=== PATIENT | male | born 1965 | race African-American/Black ===

== ENCOUNTER 2019-06-01 09:57 | Inpatient (IN) | payer OTHER ==
[2019-06-01 10:22] VITALS: BMI 25.9
--- NOTE | 2019-06-01 10:58 | HP ---
CIWA Score Nausea/Vomitin-No Nausea/No Vomiting Muscle Tremors: None Anxiety: 1-Mildly Anxious Agitation: 0-Normal Activity Paroxysmal Sweats: No Perspiration Orientation: 1-Uncertain about Date Tacttile Disturbances: 0-None Auditory Disturbances: 0-None Visual Disturbances: 0-None Headache: 0-None Present CIWA-Ar Total Score: 2 - Admission Criteria OASAS Guidelines: Admission for Medically Managed Detox: Requires at least one of the followin. CIWA greater than 12 2. Seizures within the past 24 hours 3. Delirium tremens within the past 24 hours 4. Hallucinations within the past 24 hours 5. Acute intervention needed for co occurring medical disorder 6. Acute intervention needed for co occurring psychiatric disorder 7. Severe withdrawal that cannot be handled at a lower level of care (continued vomiting, continued diarrhea, abnormal vital signs) requiring intravenous medication and/or fluids 8. Admission ROS BHS - HPI Allergies/Adverse Reactions: Allergies Allergy/AdvReac Type Severity Reaction Status Date / Time No Known Allergies Allergy Verified 06/01/19 10:17 History of Present Illness: pt here report was @ [facility] this morning ,states he went there due to his alcohol use, per pt was told there were no beds and was referred to this facility . etoh- 5-6 cans beer/day , first age of use 13 , denies significant sobriety , denies seizures , blackouts , reports occasional tremors if not drinking , most ly feeling anxious , claims latest use was yesterday states he did not take BP meds since > 1 week ago , per pharmacy latest rx Exam Limitations: No Limitations - Ebola screening Have you traveled outside of the country in the last 21 days: No Have you had contact with anyone from an Ebola affected area: No Do you have a fever: No - Review of Systems Constitutional: No Symptoms Reported EENT: reports: Other (glasses) Respiratory: reports: No Symptoms reported Cardiac: reports: No Symptoms Reported GI: reports: Other (reports heartburn , better w/ OTC Rolaids) : reports: No Symptoms Reported Musculoskeletal: reports: See HPI, Muscle Weakness Integumentary: reports: No Symptoms Reported Neuro: reports: Pre-Existing Deficit Endocrine: reports: No Symptoms Reported Psychiatric: reports: Orientated x3, Anxious Patient History - Smoking Cessation Smoking history: Unknown if ever smoked - Substances abused Alcohol Substance route: Oral Frequency: Daily Amount used: 3 cans of 24oz beer Age of first use: 14 Date of last use: 05/31/19 Admission Physical Exam BHS - Vital Signs Vital Signs: Vital Signs - 24 hr 06/01/19 10:12 Temperature 96.9 F L Pulse Rate 80 Respiratory 18 Rate Blood Pressure 152/99 - Physical General Appearance: Yes: No Apparent Distress HEENTM: Yes: EOMI, Hearing grossly Normal, Normocephalic, Normal Voice Respiratory: Yes: Chest Non-Tender, Lungs Clear, Normal Breath Sounds, No Respiratory Distress, No Accessory Muscle Use Neck: Yes: No masses,lesions,Nodules, Trachea in good position Cardiology: Yes: Regular Rhythm, Regular Rate, S1, S2 Abdominal: Yes: Non Tender, Soft Musculoskeletal: Yes: Other (CVA 2 years ago w3/ left-sided weakness uses cane) Neurological: Yes: Alert, Normal Mood/Affect Integumentary: Yes: Dry, Warm Breathalyzer - Breathalyzer Breathalyzer: 0.078 Urine Drug Screen - Test Device Lot number: [id number] Expiration date: 01/06/21 - Control Is test valid?: Yes - Results Drug screen NEGATIVE: Yes Inpatient Rehab Admission - Rehab Decision to Admit Inpatient rehab admission?: Yes - Initial Determination Are CD services needed?: Yes Free of communicable disease: Yes Not in need of hospitalization: Yes - Rehab Admission Criteria Previous failed treatment: No Poor recovery environment: No Comorbidities: Yes Lacks judgement: Yes Patient is meeting Inpatient Rehab admission criteria:: Yes
[2019-06-01] MEDS ORDERED: MENTHOL/PHENOL 1 EACH UD MM PRN (11:13)
[2019-06-01] MEDS ORDERED: MAG HYDROX/AL HYDROX/SIMETH 30 ML UNIT-DOSE CUP PO PRN (11:13)
[2019-06-01] MEDS ORDERED: LOPERAMIDE HCL 2 MG CAPSULE PO PRN (11:13)
[2019-06-01] MEDS ORDERED: P-EPHED 60MG/TRIPROLIDI 2.5MG TABLET PO PRN (11:13)
[2019-06-01] MEDS ORDERED: hydrOXYzine PAMOATE 25 MG CAPSULE (FP) PO PRN (11:13)
[2019-06-01] MEDS ORDERED: MAGNESIUM CITRATE 300 ML BOTTLE PO PRN (11:13)
[2019-06-01] MEDS ORDERED: guaiFENesin 200 MG/10 ML 10 ML UNIT-DOSE CUPS PO PRN (11:13)
[2019-06-01] MEDS ORDERED: MAGNESIUM HYDROX 2400MG/30ML ORAL SUSPENSION 30 ML CUP PO PRN (11:13)
[2019-06-01] MEDS ORDERED: NIFEDIPINE 120 MG PO SCH (11:15)
[2019-06-01] MEDS ORDERED: TUBERCULIN PPD 5 TU/0.1ML VIAL ID ONE (14:58)
[2019-06-01] MEDS: CHOLECALCIFEROL (VIT D3) 1,000 UNIT (25 MCG) TABLET PO SCH (15:08)
[2019-06-01] MEDS: NIFEdipine E.R 60 MG TABLET (UD) PO SCH (15:08)
[2019-06-01] MEDS ORDERED: ONDANSETRON *ODT* 4 MG TABLET SL PRN (15:24)
--- NOTE | 2019-06-01 15:37 | PN ---
[facility] Progress Note Note: New pt admitted to the unit from [facility] for alcohol use disorder few less than 30 minutes ago, c/o anxiety,slight tremors and nausea. denies hx seizures. alert o x 3. Nad but appears fatigued. Vital Signs - 24 hr 06/01/19 06/01/19 10:12 16:02 Temperature 96.9 F L 98.8 F Pulse Rate 80 96 H Respiratory 18 16 Rate Blood Pressure 152/99 143/82 A/P Nausea Anxiety Zofran ODT8 mg po Q8H prn for n/v Increase Vistaril 50 mg po q4h prn for agitations/anxiety
[2019-06-01] MEDS: hydrOXYzine PAMOATE 25 MG CAPSULE (FP) PO PRN (15:42)
[2019-06-01 15:47] LABS: HEMATOCRIT 44.9 % (35.4-49); HEMOGLOBIN 14.9 GM/dL (11.7-16.9); MCH 32.3 pg (25.7-33.7); MCHC 33.3 g/dl (32.0-35.9); MEAN CELL VOLUME 97.1 fl (80-96); MEAN PLT VOLUME 8.3 fl (7.5-11.1); PLATELET COUNT 290 K/MM3 (134-434); RBC 4.62 M/mm3 (4.00-5.60); RDW 14.5 % (11.9-15.9)
[2019-06-01 16:10] LABS: ALBUMIN 4.4 g/dl (3.4-5.0); BILIRUBIN,TOTAL 0.5 mg/dL (0.2-1); BLOOD UREA NITROGEN 5.6 mg/dL (7-18); CALCIUM 8.9 mg/dL (8.5-10.1); POTASSIUM 4.1 mmol/L (3.5-5.1)
[2019-06-01] MEDS: MELATONIN 5 MG TABLETS PO PRN (21:30)
[2019-06-01] MEDS: THIAMINE HCL 100 MG TABLET (FP) PO SCH (21:30)
[2019-06-02] MEDS: NIFEdipine E.R 60 MG TABLET (UD) PO SCH (10:29)
[2019-06-02] MEDS: CHOLECALCIFEROL (VIT D3) 1,000 UNIT (25 MCG) TABLET PO SCH (10:29)
[2019-06-02] MEDS: PRENATAL VITAMINS W/ FOLIC ACID TABLET (FP) PO SCH (10:29)
[2019-06-02] MEDS: ACETAMINOPHEN 325 MG TABLET (FP) PO PRN (10:30)
[2019-06-02] MEDS: hydrOXYzine PAMOATE 25 MG CAPSULE (FP) PO PRN (10:30)
[2019-06-02 12:17] LABS: URINE APPEARANCE CLEAR; URINE BILIRUBIN NEGATIVE (NEGATIVE); URINE COLOR YELLOW; URINE GLUCOSE (UA) NEGATIVE (NEGATIVE); URINE KETONE NEGATIVE (NEGATIVE); URINE LEUK ESTERASE NEGATIVE (NEGATIVE); URINE NITRITE NEGATIVE (NEGATIVE); URINE PROTEIN NEGATIVE (NEGATIVE); URINE UROBILINOGEN 0.2 mg/dL (0.2-1.0)
[2019-06-02] MEDS: THIAMINE HCL 100 MG TABLET (FP) PO SCH (21:53)
[2019-06-02] MEDS: MELATONIN 5 MG TABLETS PO PRN (21:53)
[2019-06-03] MEDS: PRENATAL VITAMINS W/ FOLIC ACID TABLET (FP) PO SCH (09:52)
[2019-06-03] MEDS: CHOLECALCIFEROL (VIT D3) 1,000 UNIT (25 MCG) TABLET PO SCH (09:52)
[2019-06-03] MEDS: NIFEdipine E.R 60 MG TABLET (UD) PO SCH (09:52)
[2019-06-03] MEDS: MELATONIN 5 MG TABLETS PO PRN (21:28)
[2019-06-03] MEDS: THIAMINE HCL 100 MG TABLET (FP) PO SCH (21:28)
[2019-06-04] MEDS: PRENATAL VITAMINS W/ FOLIC ACID TABLET (FP) PO SCH (10:29)
[2019-06-04] MEDS: CHOLECALCIFEROL (VIT D3) 1,000 UNIT (25 MCG) TABLET PO SCH (10:29)
[2019-06-04] MEDS: NIFEdipine E.R 60 MG TABLET (UD) PO SCH (10:29)
[2019-06-04] MEDS: THIAMINE HCL 100 MG TABLET (FP) PO SCH (21:28)
[2019-06-04] MEDS: MELATONIN 5 MG TABLETS PO PRN (21:28)
[2019-06-05] MEDS: hydrOXYzine PAMOATE 25 MG CAPSULE (FP) PO PRN (01:53)
[2019-06-05] MEDS: NIFEdipine E.R 60 MG TABLET (UD) PO SCH (11:19)
[2019-06-05] MEDS: CHOLECALCIFEROL (VIT D3) 1,000 UNIT (25 MCG) TABLET PO SCH (11:22)
[2019-06-05] MEDS: PRENATAL VITAMINS W/ FOLIC ACID TABLET (FP) PO SCH (11:22)
[2019-06-05] MEDS: THIAMINE HCL 100 MG TABLET (FP) PO SCH (21:35)
[2019-06-05] MEDS: MELATONIN 5 MG TABLETS PO PRN (21:36)
[2019-06-06] MEDS: PRENATAL VITAMINS W/ FOLIC ACID TABLET (FP) PO SCH (10:26)
[2019-06-06] MEDS: NIFEdipine E.R 60 MG TABLET (UD) PO SCH (10:26)
[2019-06-06] MEDS: CHOLECALCIFEROL (VIT D3) 1,000 UNIT (25 MCG) TABLET PO SCH (10:27)
[2019-06-06] MEDS: MELATONIN 5 MG TABLETS PO PRN (21:23)
[2019-06-06] MEDS: THIAMINE HCL 100 MG TABLET (FP) PO SCH (21:23)
[2019-06-07] MEDS: ACETAMINOPHEN 325 MG TABLET (FP) PO PRN (05:14)
[2019-06-07] MEDS: CHOLECALCIFEROL (VIT D3) 1,000 UNIT (25 MCG) TABLET PO SCH (11:11)
[2019-06-07] MEDS: PRENATAL VITAMINS W/ FOLIC ACID TABLET (FP) PO SCH (11:11)
[2019-06-07] MEDS: NIFEdipine E.R 60 MG TABLET (UD) PO SCH (11:12)
[2019-06-07] MEDS: MELATONIN 5 MG TABLETS PO PRN (21:06)
[2019-06-07] MEDS: THIAMINE HCL 100 MG TABLET (FP) PO SCH (21:06)
[2019-06-08] MEDS: ACETAMINOPHEN 325 MG TABLET (FP) PO PRN (02:00)
[2019-06-08] MEDS: PRENATAL VITAMINS W/ FOLIC ACID TABLET (FP) PO SCH (10:24)
[2019-06-08] MEDS: NIFEdipine E.R 60 MG TABLET (UD) PO SCH (10:24)
[2019-06-08] MEDS: CHOLECALCIFEROL (VIT D3) 1,000 UNIT (25 MCG) TABLET PO SCH (10:24)
--- NOTE | 2019-06-08 13:13 | PN ---
[facility] Progress Note Note: Pt reports hx of internal hemorrhoids for many years and experienced blood on defecation this morning. Denies nausea, vomiting,diarrhea abdominal pain or constipation.Alert o x 3, oob ambulating with steady gait. Appetite good. Vital Signs 06/08/19 07:55 Temperature 98.0 F Pulse Rate 94 H Respiratory 18 Rate Blood Pressure 116/62 Laboratory Tests 06/01/19 06/01/19 06/01/19 11:40 11:40 11:40 WBC 5.0 RBC 4.62 Hgb 14.9 Hct 44.9 MCV 97.1 H MCH 32.3 MCHC 33.3 RDW 14.5 Plt Count 290 MPV 8.3 Sodium 144 Potassium 4.1 Chloride 108 H Carbon Dioxide 26 Anion Gap 10 BUN 5.6 L Creatinine 1.0 Est GFR (CKD-EPI)AfAm 99.15 Est GFR (CKD-EPI)NonAf 85.55 Random Glucose 80 Calcium 8.9 Total Bilirubin 0.5 AST 83 H ALT 99 H Alkaline Phosphatase 54 Total Protein 8.0 Albumin 4.4 Urine Color Urine Appearance Urine pH Ur Specific [place] Urine Protein Urine Glucose (UA) Urine Ketones Urine Blood Urine Nitrite Urine Bilirubin Urine Urobilinogen Ur Leukocyte Esterase RPR Titer Nonreactive 06/02/19 09:45 WBC RBC Hgb Hct MCV MCH MCHC RDW Plt Count MPV Sodium Potassium Chloride Carbon Dioxide Anion Gap BUN Creatinine Est GFR (CKD-EPI)AfAm Est GFR (CKD-EPI)NonAf Random Glucose Calcium Total Bilirubin AST ALT Alkaline Phosphatase Total Protein Albumin Urine Color Yellow Urine Appearance Clear Urine pH 8.0 Ur Specific [place] 1.012 Urine Protein Negative Urine Glucose (UA) Negative Urine Ketones Negative Urine Blood Negative Urine Nitrite Negative Urine Bilirubin Negative Urine Urobilinogen 0.2 Ur Leukocyte Esterase Negative RPR Titer A/P Hx of Hemorrhoids blood in stool Start Anusol HC cream 2.5 % as directed Tucks wipes, use after each BM. D/w pt to report to staff if sx continues. Pt is Agreeable to poc.
[2019-06-08] MEDS ORDERED: WITCH HAZEL 50% (TUCKS) 40 PAD/JAR PAD TP PRN (13:14)
[2019-06-08] MEDS: HYDROCORTISONE 2.5% TOPICAL CREAM 30 GM TUBE TP SCH ×2 (16:07→21:16)
[2019-06-08] MEDS: THIAMINE HCL 100 MG TABLET (FP) PO SCH (21:14)
[2019-06-08] MEDS: MELATONIN 5 MG TABLETS PO PRN (21:15)
[2019-06-08] MEDS: IBUPROFEN 400 MG TABLET (FP) PO PRN (23:29)
[2019-06-09] MEDS: NIFEdipine E.R 60 MG TABLET (UD) PO SCH (10:07)
[2019-06-09] MEDS: CHOLECALCIFEROL (VIT D3) 1,000 UNIT (25 MCG) TABLET PO SCH (10:07)
[2019-06-09] MEDS: HYDROCORTISONE 2.5% TOPICAL CREAM 30 GM TUBE TP SCH ×2 (10:07→21:11)
[2019-06-09] MEDS: PRENATAL VITAMINS W/ FOLIC ACID TABLET (FP) PO SCH (10:07)
[2019-06-09] MEDS: IBUPROFEN 400 MG TABLET (FP) PO PRN (15:02)
[2019-06-09] MEDS: MELATONIN 5 MG TABLETS PO PRN (21:10)
[2019-06-09] MEDS: THIAMINE HCL 100 MG TABLET (FP) PO SCH (21:10)
[2019-06-10] MEDS: IBUPROFEN 400 MG TABLET (FP) PO PRN ×3 (04:52→21:07)
[2019-06-10] MEDS: NIFEdipine E.R 60 MG TABLET (UD) PO SCH (09:54)
[2019-06-10] MEDS: CHOLECALCIFEROL (VIT D3) 1,000 UNIT (25 MCG) TABLET PO SCH (09:54)
[2019-06-10] MEDS: PRENATAL VITAMINS W/ FOLIC ACID TABLET (FP) PO SCH (09:54)
[2019-06-10] MEDS: HYDROCORTISONE 2.5% TOPICAL CREAM 30 GM TUBE TP SCH ×2 (09:55→21:07)
[2019-06-10] MEDS ORDERED: PNEUMOC 13-VAL CONJ-DIP CRM/PF 0.5 ML DISP.SYRIN IM ONE (12:00)
[2019-06-10] MEDS ORDERED: PNEUMOCOCCAL 23 VACCINE 0.5 ML VIAL IM ONE (12:00)
[2019-06-10] MEDS: THIAMINE HCL 100 MG TABLET (FP) PO SCH (21:06)
[2019-06-10] MEDS: MELATONIN 5 MG TABLETS PO PRN (21:07)
[2019-06-11] MEDS: IBUPROFEN 400 MG TABLET (FP) PO PRN ×2 (03:56→17:42)
[2019-06-11] MEDS: CHOLECALCIFEROL (VIT D3) 1,000 UNIT (25 MCG) TABLET PO SCH (09:25)
[2019-06-11] MEDS: NIFEdipine E.R 60 MG TABLET (UD) PO SCH (09:25)
[2019-06-11] MEDS: HYDROCORTISONE 2.5% TOPICAL CREAM 30 GM TUBE TP SCH ×2 (09:25→21:14)
[2019-06-11] MEDS: PRENATAL VITAMINS W/ FOLIC ACID TABLET (FP) PO SCH (09:25)
[2019-06-11] MEDS: THIAMINE HCL 100 MG TABLET (FP) PO SCH (21:14)
[2019-06-11] MEDS: MELATONIN 5 MG TABLETS PO PRN (21:14)
[2019-06-11] MEDS: ACETAMINOPHEN 325 MG TABLET (FP) PO PRN (21:15)
[2019-06-12] MEDS: HYDROCORTISONE 2.5% TOPICAL CREAM 30 GM TUBE TP SCH ×2 (10:32→21:10)
[2019-06-12] MEDS: NIFEdipine E.R 60 MG TABLET (UD) PO SCH (10:32)
[2019-06-12] MEDS: CHOLECALCIFEROL (VIT D3) 1,000 UNIT (25 MCG) TABLET PO SCH (10:32)
[2019-06-12] MEDS: PRENATAL VITAMINS W/ FOLIC ACID TABLET (FP) PO SCH (10:32)
[2019-06-12] MEDS: THIAMINE HCL 100 MG TABLET (FP) PO SCH (21:10)
[2019-06-12] MEDS: MELATONIN 5 MG TABLETS PO PRN (21:10)
[2019-06-12] MEDS: IBUPROFEN 400 MG TABLET (FP) PO PRN (21:10)
[2019-06-13] MEDS: PRENATAL VITAMINS W/ FOLIC ACID TABLET (FP) PO SCH (10:20)
[2019-06-13] MEDS: NIFEdipine E.R 60 MG TABLET (UD) PO SCH (10:20)
[2019-06-13] MEDS: CHOLECALCIFEROL (VIT D3) 1,000 UNIT (25 MCG) TABLET PO SCH (10:20)
[2019-06-13] MEDS: HYDROCORTISONE 2.5% TOPICAL CREAM 30 GM TUBE TP SCH ×2 (10:21→21:23)
[2019-06-13] MEDS ORDERED: LIDOCAINE VISCOUS 2% ORAL/TOP 20 ML UNIT-DOSE CUP MM PRN (13:08)
[2019-06-13] MEDS: IBUPROFEN 400 MG TABLET (FP) PO PRN (16:33)
[2019-06-13] MEDS: THIAMINE HCL 100 MG TABLET (FP) PO SCH (21:23)
[2019-06-13] MEDS: MELATONIN 5 MG TABLETS PO PRN (21:23)
[2019-06-14] MEDS: IBUPROFEN 400 MG TABLET (FP) PO PRN ×2 (06:37→21:28)
[2019-06-14 07:17] VITALS: TEMP 98
[2019-06-14] MEDS: NIFEdipine E.R 60 MG TABLET (UD) PO SCH (10:21)
[2019-06-14] MEDS: PRENATAL VITAMINS W/ FOLIC ACID TABLET (FP) PO SCH (10:21)
[2019-06-14] MEDS: HYDROCORTISONE 2.5% TOPICAL CREAM 30 GM TUBE TP SCH ×2 (10:21→21:28)
[2019-06-14] MEDS: CHOLECALCIFEROL (VIT D3) 1,000 UNIT (25 MCG) TABLET PO SCH (10:21)
[2019-06-14 13:36] VITALS: BP 113/73; PULSE 95
[2019-06-14] MEDS: MELATONIN 5 MG TABLETS PO PRN (21:27)
[2019-06-14] MEDS: THIAMINE HCL 100 MG TABLET (FP) PO SCH (21:27)
--- NOTE | 2019-06-15 08:31 | DS ---
[facility] Rehab Discharge Summary - [facility] Rehab Discharge Summary Admission Date: 06/01/19 Discharge Date: 06/15/19 - History Present History: Alcohol dependence Additional Comments: Pt is a 53 y/o male with a hx of alcohol use disorder admitted to rehab and discharged today after completion. Pt has been referred to [facility] . Pt reports he has primary care provider Dr. Yamilex Dejesus at [facility] and had missed appointment for MRI and will call tomorrow to reschedule the appointment. Pertinent Past History: HTN S/P CVA left side in July 2017(no gross residual deficit) - Discharge Physical Exam Vital Signs: Vital Signs Temperature 98.0 F 06/14/19 07:16 Pulse Rate 95 H 06/14/19 10:00 Respiratory Rate 18 06/15/19 07:24 Blood Pressure 113/73 06/14/19 10:00 O2 Sat by Pulse Oximetry (%) Alert o x 3; denies s/h/i nad oob ambulating with steady gait cardiac:s1 s2,rrr lungs:cta,jayna. abdomen:soft,+bs,nt,nd extremities/skin:no edema,full ROM,skin intact. Pertinent Admission Physical Exam Findings: Laboratory Tests 06/01/19 06/01/19 06/01/19 11:40 11:40 11:40 WBC 5.0 RBC 4.62 Hgb 14.9 Hct 44.9 MCV 97.1 H MCH 32.3 MCHC 33.3 RDW 14.5 Plt Count 290 MPV 8.3 Sodium 144 Potassium 4.1 Chloride 108 H Carbon Dioxide 26 Anion Gap 10 BUN 5.6 L Creatinine 1.0 Est GFR (CKD-EPI)AfAm 99.15 Est GFR (CKD-EPI)NonAf 85.55 Random Glucose 80 Calcium 8.9 Total Bilirubin 0.5 AST 83 H ALT 99 H Alkaline Phosphatase 54 Total Protein 8.0 Albumin 4.4 Urine Color Urine Appearance Urine pH Ur Specific [place] Urine Protein Urine Glucose (UA) Urine Ketones Urine Blood Urine Nitrite Urine Bilirubin Urine Urobilinogen Ur Leukocyte Esterase RPR Titer Nonreactive 06/02/19 09:45 WBC RBC Hgb Hct MCV MCH MCHC RDW Plt Count MPV Sodium Potassium Chloride Carbon Dioxide Anion Gap BUN Creatinine Est GFR (CKD-EPI)AfAm Est GFR (CKD-EPI)NonAf Random Glucose Calcium Total Bilirubin AST ALT Alkaline Phosphatase Total Protein Albumin Urine Color Yellow Urine Appearance Clear Urine pH 8.0 Ur Specific [place] 1.012 Urine Protein Negative Urine Glucose (UA) Negative Urine Ketones Negative Urine Blood Negative Urine Nitrite Negative Urine Bilirubin Negative Urine Urobilinogen 0.2 Ur Leukocyte Esterase Negative RPR Titer Hx CVA(no gross residual deficit) - Treatment Discharge Condition: Discharge condition good - Medication Discharge Medications: Ambulatory Orders Nifedipine [Procardia Xl] 120 mg PO DAILY 30 Days tab.er.24 06/15/19 - Medication-Assisted Treatment (MAT) Medication-Assisted Treatment (MAT): No - Discharge Instructions Diet, activity, other medical instructions: Diet:PRATIK Activity: oob ad keli Other medical instructions:Follow up with your primary care provider, Dr. Yamilex Dejesus at [facility] within 1 week after discharge(Pt states he will go to the clinic tomorrow 06/16/19 to make the appointment) Follow up with CD aftercare referral at [facility] as scheduled. - Diagnosis (1) Alcohol dependence Current Visit: Yes Status: Chronic Qualifiers: Substance use status: uncomplicated Qualified Code(s): F10.20 - Alcohol dependence, uncomplicated (2) Hypertension Current Visit: Yes Status: Chronic Qualifiers: Hypertension type: essential hypertension Qualified Code(s): I10 - Essential (primary) hypertension (3) History of CVA (cerebrovascular accident) Current Visit: Yes Status: Chronic - Follow-up Referral Minutes to complete discharge: 30 - AMA Did Patient Leave Against Medical Advice: No Additional Comments: Courtesy Rx for Nifedipine 120 mg Er po daily #30 days electronically sent to 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 Pt reminded to follow up with his PCP for medical management.
[2019-06-15] MEDS: HYDROCORTISONE 2.5% TOPICAL CREAM 30 GM TUBE TP SCH (09:58)
[2019-06-15] MEDS: CHOLECALCIFEROL (VIT D3) 1,000 UNIT (25 MCG) TABLET PO SCH (09:59)
[2019-06-15] MEDS: PRENATAL VITAMINS W/ FOLIC ACID TABLET (FP) PO SCH (09:59)
[2019-06-15] MEDS: NIFEdipine E.R 60 MG TABLET (UD) PO SCH (09:59)
== END 2019-06-15 10:50 | disposition home or self-care (01) | DRG 772 ==
LOC: YASAS 09:57 → UNDOADMIN 11:33 → Y5N 11:33
PROVIDERS: ADMIT Neuromusculoskeletal Medicine & OMM; ATTEND Neuromusculoskeletal Medicine & OMM
PROC: HZ42ZZZ Group Counseling for Substance Abuse Treatment, Cognitive-Behavioral (ICD-10-PCS; principal; 2019-06-01)
DX: F10.20 Alcohol dependence, uncomplicated (principal); I10 Essential (primary) hypertension; K92.1 Melena; I69.854 Hemiplegia and hemiparesis following other cerebrovascular disease affecting left non-dominant side; K64.8 Other hemorrhoids
CPT/HCPCS: 36415; 80053; 81003; 85027; 86593; 90732; G0009; Q0162